=== PATIENT | female | born 1965 | race Caucasian/White ===

== ENCOUNTER 2017-10-04 08:08 | Day surgery (SDC) | payer BC ==
[2017-09-29 16:22] LABS: BASOPHILS % (AUTO) 0.1 % (0-1); EOSINOPHILS # (AUTO) 0.1 X10'3 (0-0.9); EOSINOPHILS % (AUTO) 1.5 % (0-6); LYMPHOCYTES # (AUTO) 2.4 X10'3 (1.1-4.8); LYMPHOCYTES % (AUTO) 30.1 % (21-51); MEAN CORPUSCULAR HEMOGLOBIN 28.4 PG (27.0-31.0); MEAN CORPUSCULAR HGB CONC 33.8 % (33.0-36.5); MEAN CORPUSCULAR VOLUME 83.8 FL (78-98); MEAN PLATELET VOLUME 8.8 FL (7.4-10.4); MONOCYTES # (AUTO) 0.5 X10'3 (0-0.9); MONOCYTES % (AUTO) 6.8 % (2-12); NEUTROPHILS # (AUTO) 4.8 X10'3 (1.8-7.7); NEUTROPHILS % (AUTO) 61.5 % (42-75); PRE OP HEMOGLOBIN 13.9 g/dL (12.0-16.0); PRE OP PLATELET COUNT 267 X10'3 (140-440); RED BLOOD COUNT 4.89 X10'6 (4.20-5.60); RED CELL DISTRIBUTION WIDTH 15.6 % (11.5-14.5)
[2017-09-29 16:32] LABS: PRE OP PROTIME 10.2 SECONDS (9.0-12.0)
[2017-09-29 16:35] LABS: ALBUMIN 3.5 G/DL (3.4-5.0); ALBUMIN/GLOBULIN RATIO 0.9 (1.1-1.5); ALKALINE PHOSPHATASE 92 IU/L (46-116); BLOOD UREA NITROGEN 8 MG/DL (7-18); BUN/CREATININE RATIO 10.1 (6.6-38.0); CALCIUM 9.1 MG/DL (8.5-10.1); CHLORIDE 104 MMOL/L (99-107); CREATININE 0.79 MG/DL (0.40-0.90); PRE OP ALT 23 U/L (30-65); PRE OP ANION GAP 9 (8-16); PRE OP AST 14 U/L (10-37); PRE OP BILIRUB, TOTAL 0.3 MG/DL (0.0-1.0); PRE OP GLUCOSE 99 MG/DL (70-104); PRE OP POTASSIUM 3.8 MMOL/L (3.4-5.1); PRE OP SODIUM 139 MMOL/L (135-145); TOTAL CARBON DIOXIDE 26.3 MMOL/L (24-32); TOTAL PROTEIN 7.4 G/DL (6.4-8.2); eGFR 76 ML/MIN
[~2017-10-04] VITALS: Ht 175.3 cm; Wt 122.9 kg
[2017-10-04] VITALS (20 sets, daily range): BP systolic 122–180; BP diastolic 69–96
[~2017-10-04 08:08] MED LIST: CITA40TA11 PO; OXCA150T5 PO; [UNRECOGNIZED DRUG - OTHER] PO; [UNRECOGNIZED DRUG - OTHER] PO; ceFOXitin 2 GM ADDvantage bag 100 ML IV ONE; famotidine 20mg tablet PO ONE
[2017-10-04] MEDS: ringers solution, lacted 1,000 ML IV SCH ×6 (09:12→21:00)
[2017-10-04] MEDS ORDERED: clindamycin phosphate 40gm vag cream ONE (09:33)
[2017-10-04] MEDS ORDERED: BUPIVAcaine/PF 2.5mg/ml (0.25%) 10ml vial ONE (09:34)
[2017-10-04] MEDS ORDERED: ceFAZolin 1000mg inj ONE (09:34)
[2017-10-04] MEDS ORDERED: morphine 10mg/ml inj. ONE ×2 (09:34→12:53)
[2017-10-04] MEDS ORDERED: vasoPRESSIN 20 units/ml inj. ONE ×2 (09:36→09:45)
[2017-10-04] MEDS ORDERED: LIDOcaine 1% 30ml preserv. free vial ONE (09:51)
[2017-10-04] MEDS ORDERED: dexamethasone sod phosphate 10mg/ml inj ONE (10:30)
[2017-10-04] MEDS ORDERED: neostigmine methylsulfate 1 MG/ML 10ml vial ONE (10:30)
[2017-10-04] MEDS ORDERED: sevoflurane 250ml liquid IH ONE (10:30)
[2017-10-04] MEDS ORDERED: LIDOcaine 2% (20mg/ml) 5ml vial ONE (10:34)
[2017-10-04] MEDS ORDERED: propofol inj 20 ML IV ONE ×2 (10:34)
[2017-10-04] MEDS ORDERED: MIDAZolam 5mg/5ml vial ONE (10:34)
[2017-10-04] MEDS ORDERED: fentaNYL /PF 50mcg/ml 5ml ampule ONE (10:34)
[2017-10-04] MEDS ORDERED: rocuronium 10mg/ml inj IV ONE ×2 (10:35→11:59)
[2017-10-04] MEDS ORDERED: ondansetron/PF 4mg/2ml inj ONE (10:53)
[2017-10-04] MEDS ORDERED: ringers solution, lacted 1,000 ML IV SCH (11:12)
[2017-10-04] MEDS ORDERED: morphine 4 MG/ML inj SYRINge IV PRN ×2 (11:15)
[2017-10-04] MEDS ORDERED: ondansetron/PF 4mg/2ml inj IV PRN ×2 (11:15→13:15)
[2017-10-04] MEDS ORDERED: hydrALAZINE 20mg/ml inj. IV PRN (11:15)
[2017-10-04] MEDS ORDERED: fentaNYL/PF 50MCG/1 ML 2ML syringe IV PRN ×2 (11:15)
[2017-10-04] MEDS ORDERED: labetalol 20mg/4ml (5mg/ml) syringe IV PRN (11:15)
[2017-10-04] MEDS ORDERED: glycopyrrolate 0.2mg/ml inj ONE (12:37)
[2017-10-04] MEDS ORDERED: normal saline 500ml IV soln 500 ML IV PRN (13:15)
[2017-10-04] MEDS ORDERED: magnesium hydroxide 30ml (MOM) UD suspension PO PRN (13:15)
[2017-10-04] MEDS ORDERED: HYDROcodone/acetaminophen 5mg/325mg tablet PO PRN (13:15)
[2017-10-04] MEDS ORDERED: ketorolac trometh. 30mg/ml inj. IV PRN (13:15)
[2017-10-04] MEDS ORDERED: naloxone 0.4 mg/ml inj IV PRN (13:15)
[2017-10-04] MEDS ORDERED: temazepam 15mg capsule PO PRN (13:15)
[2017-10-04] MEDS ORDERED: CADD PCA waste documentation MC PRN (13:15)
[2017-10-04] MEDS ORDERED: diphenhydrAMINE 50 mg/ml inj IV PRN (13:15)
[2017-10-04] MEDS: HYDROmorphone/NS 1 mg/ml CADD 50 ML IV SCH ×5 (14:03→23:00)
[2017-10-04] MEDS ORDERED: HYDROmorphone/NS 1 mg/ml CADD 50 ML IV SCH (15:00)
[2017-10-04] MEDS: simethicone 80mg chew tab PO SCH (17:18)
[2017-10-04] MEDS: oxcarbazepine 150mg tablet PO SCH (20:32)
[2017-10-04] MEDS: docusate sod 100mg capsule PO SCH (20:32)
[2017-10-05] VITALS: BP 126/73
[2017-10-05] MEDS: HYDROmorphone/NS 1 mg/ml CADD 50 ML IV SCH ×4 (01:00→07:00)
[2017-10-05] MEDS: ringers solution, lacted 1,000 ML IV SCH (03:52)
[2017-10-05 05:02] LABS: BASOPHILS % (AUTO) 0.2 % (0-1); EOSINOPHILS # (AUTO) 0.1 X10'3 (0-0.9); HEMATOCRIT 34.9 % (35.0-45.0); HEMOGLOBIN 11.5 g/dl (12.0-16.0); LYMPHOCYTES # (AUTO) 0.9 X10'3 (1.1-4.8); LYMPHOCYTES % (AUTO) 11.1 % (21-51); MEAN CORPUSCULAR HEMOGLOBIN 27.9 PG (27.0-31.0); MEAN CORPUSCULAR HGB CONC 32.9 % (33.0-36.5); MEAN CORPUSCULAR VOLUME 84.8 FL (78-98); MEAN PLATELET VOLUME 8.8 FL (7.4-10.4); MONOCYTES # (AUTO) 0.6 X10'3 (0-0.9); MONOCYTES % (AUTO) 6.9 % (2-12); NEUTROPHILS # (AUTO) 6.7 X10'3 (1.8-7.7); NEUTROPHILS % (AUTO) 80.8 % (42-75); PLATELET COUNT 203 X10'3 (140-440); RED BLOOD COUNT 4.11 X10'6 (4.20-5.60); RED CELL DISTRIBUTION WIDTH 15.5 % (11.5-14.5); WHITE BLOOD COUNT 8.3 X10'3 (4.5-11.0)
[2017-10-05] MEDS: simethicone 80mg chew tab PO SCH ×2 (07:13→13:04)
[2017-10-05] MEDS: docusate sod 100mg capsule PO SCH (07:13)
[2017-10-05] MEDS: oxcarbazepine 150mg tablet PO SCH (07:14)
[2017-10-05 07:47] VITALS: BP 118/59
[2017-10-05] MEDS ORDERED: citalopram 20mg tablet PO SCH (08:00)
[2017-10-05] MEDS ORDERED: CITALOPRAM HYDROBROMIDE PO SCH (08:00)
[2017-10-05] MEDS: HYDROcodone/acetaminophen 5mg/325mg tablet PO PRN ×2 (09:12→16:36)
[2017-10-05 11:22] VITALS: BP 118/63
== END 2017-10-05 16:35 | disposition home or self-care (01) ==
LOC: PAS 08:08 → SUR 3N 13:15 → PAS 10-05 16:35
PROVIDERS: ATTEND Specialist
DX: D25.1 Intramural leiomyoma of uterus (principal); N81.4 Uterovaginal prolapse, unspecified; N72 Inflammatory disease of cervix uteri; N81.2 Incomplete uterovaginal prolapse; F41.8 Other specified anxiety disorders; F32.9 Major depressive disorder, single episode, unspecified; E66.01 Morbid (severe) obesity due to excess calories; G43.909 Migraine, unspecified, not intractable, without status migrainosus; Z90.49 Acquired absence of other specified parts of digestive tract; Z79.891 Long term (current) use of opiate analgesic; Z98.84 Bariatric surgery status; Z68.41 Body mass index [BMI] 40.0-44.9, adult; Z88.6 Allergy status to analgesic agent; Z79.899 Other long term (current) drug therapy; Z98.890 Other specified postprocedural states
CPT/HCPCS: 36415; 57240; 57283; 57288; 58554; 80053; 85025; 85610; 85730; A4315; A4353; A4355; C1771; J0690; J0694; J1100; J1170; J1885; J2001; J2250; J2270; J2405; J2704; J2710; J3010; J3490; J7030; J7120; A6250; A7000